=== PATIENT | male | born 1955 | race Hispanic/Latino ===

== ENCOUNTER 2022-03-17 08:29 | Day surgery (SDC) | payer MEDICARE ==
[2022-03-17] VITALS (9 sets, daily range): BP systolic 112–131; BP diastolic 75–82
[~2022-03-17] VITALS: Ht 182.9 cm; Wt 89.8 kg
[2022-03-17] MEDS ORDERED: 0.9%NACL 1000ML 1,000 ML IV ONE (09:06)
[2022-03-17 09:22] LABS: HEMATOCRIT 45.2 % (42-54); MEAN CORPUSCULAR HEMOGLOBIN 29.2 pg (27.0-33.0); MEAN CORPUSCULAR HGB CONC 31.9 g/dL (32.0-36.0); MEAN CORPUSCULAR VOLUME 91.7 fL (79-99); PLATELET COUNT (AUTO) 244 K/uL (130-400); RED BLOOD CELL COUNT(AUTO) 4.93 MIL/uL (4.50-6.20); RED CELL DISTRIBUTION WIDTH 12.5 % (11.0-15.5); WHITE BLOOD COUNT (AUTO) 4.6 K/uL (4.8-10.8)
[2022-03-17 09:33] LABS: PROTHROMBIN TIME 10.9 SEC (9.6-11.6)
[2022-03-17 09:34] LABS: PARTIAL THROMBOPLASTIN TIME 25.6 SEC (26.3-35.5)
[2022-03-17 10:15] LABS: BAND NEUTROPHILS % (MANUAL) 1 % (0-2); BASOPHILS % (MANUAL) 2 % (0-2); LYMPHOCYTES % (MANUAL) 39 % (22-44); MAN.DIFF COMMENT-IMPRESSION MANUAL DIFFERENTIAL; MONOCYTES % (MANUAL) 8 % (2-9); PLATELET MORPHOLOGY COMMENT ADEQUATE; REACTIVE LYMPHOCYTES 2 % (0-0); SEGMENTED NEUTROPHILS % 48 % (40-70)
[2022-03-17] MEDS ORDERED: LIDOCAINE HCL MPF 1% 5ML VIAL ONE ×2 (16:24)
== END 2022-03-17 14:05 | disposition home or self-care (01) ==
LOC: DAH 08:29
PROVIDERS: ATTEND Internal Medicine Gastroenterology
DX: R94.5 Abnormal results of liver function studies (principal); K76.0 Fatty (change of) liver, not elsewhere classified; R93.2 Abnormal findings on diagnostic imaging of liver and biliary tract; K64.9 Unspecified hemorrhoids; Z86.010 Personal history of colon polyps; Z85.46 Personal history of malignant neoplasm of prostate; Z72.89 Other problems related to lifestyle; Z98.890 Other specified postprocedural states; Z98.1 Arthrodesis status; Z79.01 Long term (current) use of anticoagulants
CPT/HCPCS: 36415; 47000; 76942; 85025; 85610; 85730; 88307; 88313; A4215; A4221; A4222; A4223; A4663; C1887; C2615; J3490 ×2; J7030